=== PATIENT | male | born 1965 | race Caucasian/White ===

== ENCOUNTER → 2023-12-16 11:38 | Outpatient (REF) | payer OTHER, SELFPAY | LOC: REG 11:38 | PROVIDERS: ATTENDING PHYSICIAN Family Medicine | DX: M54.2 Cervicalgia (principal) | CPT/HCPCS: 72052 ==

== ENCOUNTER → 2023-12-31 10:55 | Outpatient (REF) | payer OTHER, SELFPAY | LOC: HWRAD 10:55 | PROVIDERS: ATTENDING PHYSICIAN Specialist; FAMILY PHYSICIAN Family Medicine | DX: R51.9 Headache, unspecified (principal) | CPT/HCPCS: 70470; Q9967 ==

== ENCOUNTER → 2024-08-08 10:57 | Outpatient (REF) | payer OTHER, SELFPAY | LOC: HWRAD 10:57 | PROVIDERS: ATTENDING PHYSICIAN Specialist; FAMILY PHYSICIAN Family Medicine | DX: N20.0 Calculus of kidney (principal); R31.0 Gross hematuria; R10.9 Unspecified abdominal pain; R60.0 Localized edema | CPT/HCPCS: 74176 ==